=== PATIENT | female | born 1960 | race Caucasian/White ===

== ENCOUNTER → 2023-03-19 | Outpatient (REF) | payer OTHER ==
[2023-03-19 14:28] LABS: BASO % 0.5 % (0.0-1.0); EOS # 0.1 10^3/uL (0.0-0.5); EOS % 0.6 % (0.0-3.0); HEMATOCRIT 43.6 % (36.0-47.0); HEMOGLOBIN 14.9 g/dl (12.0-15.5); LYMPH % 25.3 % (24.0-44.0); MEAN CORPUSCULAR HEMOGLOBIN 31.5 pg (27.0-33.0); MEAN CORPUSCULAR HGB CONC 34.2 g/dl (32.0-36.5); MEAN CORPUSCULAR VOLUME 92.2 fl (80.0-96.0); MONO # 0.4 10^3/uL (0.0-0.8); MONO % 5.1 % (2.0-8.0); NEUTROPHILS # 5.4 10^3/uL (1.5-8.5); NEUTROPHILS % 68.1 % (36.0-66.0); PLATELET COUNT, AUTOMATED 212 10^3/uL (150-450); RED BLOOD COUNT 4.73 10^6/uL (4.00-5.40); WHITE BLOOD COUNT 7.9 10^3/uL (4.0-10.0)
[2023-03-19 14:42] LABS: C REACTIVE PROTEIN QUANTITATIV < 0.40 MG/DL (<1.0); LDH LACTATE DEHYDROGENASE 173 U/L (120-246)
[2023-03-19 14:43] LABS: ALBUMIN 4.4 G/DL (3.2-5.2); ALKALINE PHOSPHATASE 65 U/L (46-116); ALT/SGPT 24 U/L (7.0-40); AST/SGOT 18 U/L (<34); BILIRUBIN,TOTAL 0.7 MG/DL (0.3-1.2); BLOOD UREA NITROGEN 11 MG/DL (9-23); CALCIUM LEVEL 9.4 MG/DL (8.3-10.6); CARBON DIOXIDE LEVEL 24 MMOL/L (20-31); CHLORIDE LEVEL 110 MMOL/L (98-107); CPK CREATINE PHOSPHOKINASE 114 U/L (34-145); CREATININE FOR GFR 0.74 MG/DL (0.55-1.30); GLOMERULAR FILTRATION RATE > 60.0 (>45); GLUCOSE, FASTING 98 MG/DL (74-106); POTASSIUM SERUM 4.2 MMOL/L (3.5-5.1); SODIUM LEVEL 143 MMOL/L (136-145); TOTAL PROTEIN 6.7 G/DL (5.7-8.2)
[2023-03-19 14:52] LABS: ERYTHROCYTE SEDIMENTATION RATE 10 mm/hr (0-30)
== END ==
LOC: M SFHCRHEU 09:19
PROVIDERS: ATTEND Internal Medicine Rheumatology
DX: R21 Rash and other nonspecific skin eruption (principal); M25.50 Pain in unspecified joint; F41.9 Anxiety disorder, unspecified

== ENCOUNTER 2025-02-13 06:22 | Observation (INO) | payer OTHER ==
[~2025-02-13] VITALS: Ht 165.1 cm; Wt 91.4 kg
[2025-02-13] VITALS (7 sets, daily range): BP systolic 131–159; BP diastolic 69–91; TEMP 97.5–98.9; O2SAT 94–97
[~2025-02-13 06:22] MED LIST: ESTR0.1C5 VA; HYDR-3363 PO; LEXA5TAB13 PO
[2025-02-13] MEDS ORDERED: LR 1,000 ML IV SCH ×3 (06:25→10:35)
[2025-02-13] MEDS ORDERED: LIDOCAINE 2% 100MG/5ML SDV (FOR ANES.) As Ordered ONE (06:49)
[2025-02-13] MEDS ORDERED: MIDAZOLAM INJ 2MG/2ML VIAL As Ordered ONE (06:50)
[2025-02-13] MEDS ORDERED: fentaNYL 100 MCG/2 ML INJECTION As Ordered ONE (06:51)
[2025-02-13] MEDS ORDERED: ROCURONIUM BROMIDE 50MG/5ML VIAL As Ordered ONE (06:52)
[2025-02-13] MEDS ORDERED: propofoL 200 MG/20 ML VIAL As Ordered ONE (06:52)
[2025-02-13] MEDS ORDERED: ONDANSETRON 4MG 2ML VIAL As Ordered ONE (07:00)
[2025-02-13] MEDS ORDERED: SUGAMMADEX SODIUM 500 MG/5 ML VIAL (BRIDION) As Ordered ONE (07:02)
[2025-02-13 07:18] LABS: HEMATOCRIT 44.4 % (36.0-47.0); HEMOGLOBIN 15.3 g/dl (12.0-15.5); MEAN CORPUSCULAR HEMOGLOBIN 32.1 pg (27.0-33.0); MEAN CORPUSCULAR HGB CONC 34.5 g/dl (32.0-36.5); MEAN CORPUSCULAR VOLUME 93.1 fl (80.0-96.0); PLATELET COUNT, AUTOMATED 226 10^3/uL (150-450); RED BLOOD COUNT 4.77 10^6/uL (4.00-5.40)
[2025-02-13] MEDS ORDERED: GLYCOPYRROLATE INJ 0.2 MG/ML 2 ML VIAL As Ordered ONE (07:55)
[2025-02-13] MEDS: ceFAZolin SOD 2 GM IV ONCE IV ONE (08:07)
[2025-02-13] MEDS ORDERED: hydrALAZINE 20MG/ML 1ML VIAL As Ordered ONE (08:24)
[2025-02-13] MEDS ORDERED: HYDROmorphone HCL 2MG/ML 1ML VIAL As Ordered ONE (08:35)
[2025-02-13] MEDS ORDERED: oxyCODONE 5MG TAB PO PRN (09:40)
[2025-02-13] MEDS ORDERED: fentaNYL 100 MCG/2 ML INJECTION IV PRN (09:40)
[2025-02-13] MEDS ORDERED: IBUP-1022 PO (10:12)
[2025-02-13] MEDS ORDERED: OXYC1TAB23 PO (10:17)
[2025-02-13] MEDS ORDERED: COLA100C5 PO (10:18)
[2025-02-13] MEDS ORDERED: PERCOCET 5MG/325MG TAB PO PRN ×2 (10:35→15:35)
[2025-02-13] MEDS: ONDANSETRON 4MG 2ML VIAL IV PRN (10:50)
[2025-02-13] MEDS: PROMETHAZINE 25MG/ML 1ML VIAL IV PRN (11:10)
[2025-02-13] MEDS: PROCHLORPERAZINE 10MG 2ML VIAL IV PRN (12:18)
[2025-02-13] MEDS ORDERED: ONDANSETRON 4MG 2ML VIAL IV PRN (15:35)
[2025-02-13] MEDS: LR 1,000 ML IV SCH (16:46)
[2025-02-13] MEDS: FAMOTIDINE 20 MG TAB PO ONE (21:00)
[2025-02-13] MEDS: DOCUSATE SODIUM 100MG CAPSULE PO SCH (21:01)
[2025-02-14 02:00] VITALS: BP 139/79; TEMP 97.9; O2SAT 95
[2025-02-14 06:00] VITALS: BP 137/80; TEMP 97.1; O2SAT 94
[2025-02-14] MEDS: KETOROLAC 30 MG/ML 1ML VIAL IV PRN (09:50)
== END 2025-02-14 10:57 | disposition home or self-care (01) ==
LOC: M SDC 06:22 → M RR INP 06:23 → M OBS 16:26
PROVIDERS: ADMIT Specialist; ATTEND Specialist
DX: N81.2 Incomplete uterovaginal prolapse (principal); Z79.899 Other long term (current) drug therapy
CPT/HCPCS: 36415; 57240; 57283; 58571; 85027; 86850; 86900; 86901; 88302; 88307; 93005; 96374; J0360; J0665; J0690; J0780; J1100; J1171; J1596; J1885; J2250; J2405; J2550; J3010; S2900